=== PATIENT | female | born 1970 | race Caucasian/White ===

== ENCOUNTER 2016-09-13 22:44 | Emergency (ER) | payer BC ==
[2016-09-13] MEDS ORDERED: Prometh/Codeine Liquid 10/6.25 MG/5 ML ORAL.SYRIN PO ONE (23:03)
[2016-09-13] MEDS ORDERED: Sodium Chloride 0.9% 1,000 ML PRIMARY IV ONE (23:03)
--- NOTE | 2016-09-13 23:10 | PDOC ---
Upper Respiratory HPI - General Chief Complaint: Cough / URI Stated Complaint: Cough Date Seen by Provider: 09/13/16 Time Seen by Provider: 23:05 Source: POSITIVE: Patient, Spouse Exam Limitations: POSITIVE: No limitations Nurse's Notes Reviewed & Considered: Yes - History of Present Illness Initial Comments: Patient comes in today chief complaint of cough. Patient with an increasing cough over the last 2 or 3 days, today she had increasing hoarseness and mild sore throat. She is presently undergoing chemotherapy for recurrent astrocytoma. Her last chemotherapy was 2 weeks ago. She denies any fevers chills or sweats, nausea vomiting or diarrhea, chest pain, she does have cough that is nonproductive, shows a stuffy head, and myalgias. No rashes. Timing: REPORTS: Gradual Duration: >24 hours Severity: Moderate Context: REPORTS: Recent Chemotherapy Modifying Factors: improves with: Rest, Exertion, Coughing, OTC Cough Suppressant Associated Symptoms: REPORTS: Runny Nose, Sore Throat, Hoarseness, Cough Similar Symptoms Previously: No Recently seen/treated/hospitalized: No Any Prior Injuries Related to Current Complaint?: No - Patient Home Medications Home Medications: Home Medications Dexamethasone 1 mg PO BID 05/04/15 Ondansetron [Zofran Odt] 8 mg PO Q6H PRN PRN 05/04/15 Cholecalciferol (Vitamin D3) [Vitamin D] 1 tab PO DAILY 09/04/15 Vitamin B Complex [B100 Balanced] 1 tab PO DAILY 09/04/15 Ascorbic Acid [Vitamin C] 500 mg PO DAILY 04/30/16 Escitalopram Oxalate [Lexapro] 20 mg PO DAILY 04/30/16 Levetiracetam [Keppra] 1,500 mg PO BID 04/30/16 Meclizine HCl 25 mg PO Q4H PRN #20 tablet 04/30/16 Lorazepam [Ativan] 1 mg PO PRN PRN 09/13/16 Melatonin 20 mg PO .QHS 09/13/16 Prochlorperazine Maleate [Compazine] 1 tab PO .Q4HRS 09/13/16 Sulfameth/Trimeth 800/160 Tab [Bactrim DS 800/160 Tab] 1 tab PO BID 09/13/16 Tramadol HCl 1 - 2 tab PO .Q6HRS PRN 09/13/16 - Patient Allergies Allergies/Adverse Reactions: Allergies Allergy/AdvReac Type Severity Reaction Status Date / Time No Known Allergies Allergy Verified 09/13/16 22:51 Past Medical History - heen HEENT History: Denies History Cardiovascular History: DVTs Additional Cardiovasular History: IVC Filter placed. Respiratory History: Denies History Gastrointestinal History: Denies History Genitourinary History: Denies History Endocrine History: Denies History Musculoskeletal History: Denies History Prosthesis or Implant: No Neurological History: Seizures, Migraines, Other (please comment) Additional Neurological History: SEIZURE FREQUENCY HAS BEEN INCREASING. Pt. states there is a minimum of one seizure per day. Blood Disorders: Clotting Disorders, Other (please comment) Additional Blood Disorders History: Hx of DVT--IVC Filter placed. Psychiatric History: Denies History History of Sexually Transmitted Diseases: No Cancer History: Brain Cancer Treatment / Date(s) of Treatment: CURRENTLY GETTING CHEMO History of MDRO: No Alcohol Use: None Substance Use Type: None Previous Surgical History: Yes Type / Date of Surgery: BRAIN TUMOR REMOVAL 2009 Anesthesia Reactions: No Significant Family History: No pertinent family hx ROS - Limitations ROS Limitations: No Limitations Constitution: REPORTS: Denies Symptoms Cardiovascular: REPORTS: Denies Cardiac Symptoms Respiratory: REPORTS: Cough Non Productive Neurological: REPORTS: Denies Neuro Symptoms Gastrointestinal: REPORTS: Denies GI Symptoms Endocrine: REPORTS: Denies Symptoms Musculoskeletal: REPORTS: Muscle Aches Genitourinary: REPORTS: Denies Symptoms Eyes: REPORTS: Denies Symptoms ENT: REPORTS: Denies Symptoms Skin: REPORTS: Denies Skin Symptoms Lympathic: REPORTS: Denies Lympathic Symptoms Immunologic: POSITIVE: Denies Symptoms Psychiatric: POSITIVE: Denies Psych Symptoms Upper Respiratory/Fever Exam - General Appearance General Appearance: REPORTS: Alert, Cooperative, No Acute Distress, No Evidence of Trauma - HEENT HEENT: POSITIVE: Head Inspection Nml, Eyes Inspection Nml, Ears Inspection Nml, Nose Inspection Nml, Oral/Dental Inspect. Nml, Pharynx Inspect. Nml, PERRL, EOMI - Neck Neck: REPORTS: Normal Inspection, Supple - Respiratory Respiratory: REPORTS: No Respiratory Distress, Breath Sounds Normal, No Pleuritic Chest Pain, Speaks Full Sentences, No Pain on Inspiration - Abdomen Abdomen: Soft: (All Quadrants), Normal Bowel Sounds: (All Quadrants), Denies Tenderness: (All Quadrants) - Cardiovascular Cardiovascular: REPORTS: Regular Rate and Rhythm, Heart Sounds Normal - Skin Skin: REPORTS: Intact, Normal For Race, Warm, Dry, No Rash - Extremities Extremity: Non-Tender: (All Extremities), Normal ROM: (All Extremities), Normal Inspection: (All Extremities) - Neurological / Psychological Neurological: POSITIVE: Affect Apporpriate, Oriented X3, Motor Normal, Sensation Normal Upper Resp/Fever Progress - Results Reviewed by me Xrays/CTs/US Reviewed by me: Yes Discussed with Radiologist: No Lab Results Reviewed: Yes Lab Results:: Laboratory Results 09/13/16 Range/Units 23:24 WBC 6.42 (4.8-10.8) 10^3/uL RBC 5.14 (4.20-5.40) 10^6/uL Hgb 15.0 (12.0-16.0) g/dL Hct 45.7 (37.0-47.0) % MCV 88.9 (81-99) FL MCH 29.2 (27-31) PG MCHC 32.8 L (33-37) g/dL RDW Std Deviation 48.0 (39-50) fL RDW Coeff of Suzy 14.9 H (11.5-14.5) % Plt Count 252 (140-350) 10*3/uL MPV 10.7 (7.4-12.2) FL Immature Gran % (Auto) 0.2 (0-5) % Neut % (Auto) 60.2 (50-80) % Lymph % (Auto) 26.2 (10-50) % Beadle % (Auto) 6.2 (5-15) % Eos % (Auto) 6.9 (0-8) % Baso % (Auto) 0.3 (0-1) % Immature Gran # (Auto) 0.01 10*3/UL Neut # (Auto) 3.87 10*3/UL Lymph # (Auto) 1.68 10*3/uL Beadle # (Auto) 0.40 (0.3-0.8) 10*3/UL Eos # (Auto) 0.44 10*3/UL Baso # (Auto) 0.02 10*3/UL WBC Morphology Comment Normal morphology (NORM) Plt Morphology Comment Normal morphology (NORM) RBC Morph Comment Normal morphology (NORM) Sodium 141 (135-145) meq/L Potassium 3.9 (3.8-5.2) meq/L Chloride 103 (98-112) meq/L Carbon Dioxide 28 (23-33) meq/L Anion Gap 10 (5-20) BUN 11 (7-22) mg/dL Creatinine 0.7 (0.50-1.20) mg/dL Estimated GFR > 60 (>60 ml/min/1.73m(2)) BUN/Creatinine Ratio 15.71 (6-20) Glucose 97 (78-110) mg/dL Calculated Osmolality 290.0 (267-292) mOsm/kg Calcium 9.9 (8.7-10.7) mg/dL Total Bilirubin 0.7 (0.3-1.2) mg/dL AST 29 (8-39) IU/L ALT 20 (9-52) IU/L Alkaline Phosphatase 71 (38-126) IU/L Total Protein 7.7 (6.1-8.0) g/dL Albumin 4.3 (3.5-4.8) g/dL Globulin 3.4 (2.50-4.10) g/dL Albumin/Globulin Ratio 1.20 L (1.3-2.0) mg/g - Patient's Progress Pain Medication Addressed: POSITIVE: Not Applicable School/Work Release Addressed: POSITIVE: Yes Re-Examine Time: 00:15 Status: POSITIVE: Improved MDM / ED Course: Patient was examined, blood drawn and sent to the lab for studies, chest x-ray was obtained. Patient received oral Phenergan with codeine and her cough improved. Findings: CBC is within normal limits, comprehensive metabolic panel is within normal limits, chest x-ray as interpreted by me shows no acute cardiopulmonary decompensation. Assessment: Viral upper respiratory infection with laryngitis. Plan: Discharge home, Tylenol as needed, Phenergan with codeine is prescribed. Patient Care Time - Estimated PCT Patient Care Time (In Minutes): 30 Vital Signs - Recent Vital Signs Vital Signs: Vital Signs (Last 8 hours) Temp Pulse Resp BP Pulse Ox 09/13/16 22:45 96.8 F 80 18 122/87 95 - VS Reviewed Vital Signs Reviewed: Yes Discharge Clinical Impression: Upper respiratory infection Discharge Disposition: Discharged to Home Condition: Stable Patient Instructions Given at Discharge: Upper Respiratory Infection (ED), Laryngitis (ED)
[2016-09-13 23:30] LABS: BASOPHILS # (AUTO) 0.02 10*3/UL; BASOPHILS % (AUTO) 0.3 % (0-1); EOSINOPHILS # (AUTO) 0.44 10*3/UL; EOSINOPHILS % (AUTO) 6.9 % (0-8); HEMATOCRIT 45.7 % (37.0-47.0); LYMPHOCYTES # (AUTO) 1.68 10*3/uL; MEAN CORPUSCULAR HEMOGLOBIN 29.2 PG (27-31); MEAN CORPUSCULAR HGB CONC 32.8 g/dL (33-37); MEAN CORPUSCULAR VOLUME 88.9 FL (81-99); MEAN PLATELET VOLUME 10.7 FL (7.4-12.2); MONOCYTES % (AUTO) 6.2 % (5-15); NEUTROPHILS # (AUTO) 3.87 10*3/UL; NEUTROPHILS % (AUTO) 60.2 % (50-80); RED BLOOD COUNT 5.14 10^6/uL (4.20-5.40)
[2016-09-13 23:32] LABS: PLATELET MORPHOLOGY COMMENT NORMAL MORPHOLOGY (NORM); RBC MORPHOLOGY COMMENT NORMAL MORPHOLOGY (NORM); WBC MORPHOLOGY COMMENT NORMAL MORPHOLOGY (NORM)
[2016-09-13 23:39] LABS: BLOOD UREA NITROGEN 11 mg/dL (7-22); BUN/CREATININE RATIO 15.71 (6-20); CALCIUM 9.9 mg/dL (8.7-10.7); EST GLOMERULAR FILTRATION > 60 (>60 ml/min/1.73m(2)); SERUM ALBUMIN 4.3 g/dL (3.5-4.8)
[2016-09-13 23:45] VITALS: RESP 18; TEMP 96.8
[2016-09-14] MEDS ORDERED: HEPARIN 500 UNIT/5 ML SYRINGE FOR CENTRAL LINE IVP ONE ×2 (00:13→00:18)
[2016-09-14] MEDS ORDERED: Prometh/Codeine Liquid 10/6.25 MG/5 ML ORAL.SYRIN PO SCH (00:30)
--- NOTE | 2016-09-16 09:16 | DI ---
XR CXR 2VW PA/LAT,09/13/2016 11:03 PM: Clinical History: Cough Previous Exam: May 04, 2015 Findings: PA and lateral views of the chest are obtained, and demonstrate clear lungs. The cardiomediastinum an d bony thorax are unremarkable. There is a chest port noted within the left anterior chest wall with the tip in good position. There is no evidence of infiltrate nor effusion. There is an IVC filter noted. Impression: No acute disease.
== END 2016-09-14 00:39 | disposition home or self-care (01) ==
LOC: ER 22:44
DX: J04.0 Acute laryngitis (principal); J02.9 Acute pharyngitis, unspecified
CPT/HCPCS: 36415; 71020; 80053; 85025; 87040; 87802; 99283; J7030

== ENCOUNTER 2019-03-23 13:22 | Inpatient (IN) ==
[2019-03-23] MEDS ORDERED: KETOROLAC 15 MG/1 ML VIAL IVP ONE (13:49)
[2019-03-23] MEDS ORDERED: ONDANSETRON 4 MG/2 ML VIAL IVP ONE (13:49)
[2019-03-23] MEDS ORDERED: Sodium Chloride 0.9% 1,000 ML PRIMARY IV ONE (13:50)
[2019-03-23 14:32] LABS: BASOPHILS # (AUTO) 0.01 10*3/UL; BASOPHILS % (AUTO) 0.2 % (0-1); EOSINOPHILS % (AUTO) 1.6 % (0-8); Hematocrit [HCT] 51.4 % (37.0-47.0); Hemoglobin [HGB] 16.3 g/dL (12.0-16.0); LYMPHOCYTES # (AUTO) 1.02 10*3/uL; MEAN CORPUSCULAR HGB CONC 31.7 g/dL (33-37); MEAN CORPUSCULAR VOLUME 92.6 FL (81-99); MEAN PLATELET VOLUME 10.3 FL (7.4-12.2); MONOCYTES # (AUTO) 0.33 10*3/UL (0.3-0.8); MONOCYTES % (AUTO) 5.2 % (5-15); NEUTROPHILS # (AUTO) 4.84 10*3/UL; NEUTROPHILS % (AUTO) 76.8 % (50-80); RED BLOOD COUNT 5.55 10^6/uL (4.20-5.40)
[2019-03-23 14:40] LABS: PLATELET MORPHOLOGY COMMENT NORMAL MORPHOLOGY (NORM); RBC MORPHOLOGY COMMENT NORMAL MORPHOLOGY (NORM); WBC MORPHOLOGY COMMENT NORMAL MORPHOLOGY (NORM)
[2019-03-23 14:42] LABS: VENOUS PH 7.37 (7.32-7.42)
[2019-03-23 14:43] LABS: BLOOD UREA NITROGEN 7 mg/dL (7-22); BUN/CREATININE RATIO 11.66 (6-20)
[2019-03-23 15:11] LABS: Erythrocyte Sediment Rate 16 MM/HR (0-20)
[2019-03-23] MEDS ORDERED: ACETAMINOPHEN 325 MG TABLET PO PRN (18:55)
[2019-03-23] MEDS ORDERED: LIDOCAINE W/ SODIUM BICARB 0.5 ML SYR SUBD PRN (18:55)
[2019-03-23] MEDS ORDERED: CALCIUM CARBONATE 500 MG (TUMS) CHEWABLE TABLET PO PRN (18:55)
[2019-03-23] MEDS ORDERED: ONDANSETRON 4 MG/2 ML VIAL IVP PRN (18:55)
[2019-03-23] MEDS: Lactated Ringers 1,000 ML PRIMARY IV SCH (20:23)
[2019-03-23] MEDS: BENZOCAINE ORAL 57 GM SPRAY PO PRN (21:04)
[2019-03-24] MEDS: Lactated Ringers 1,000 ML PRIMARY IV SCH ×3 (04:08→21:25)
[2019-03-24] MEDS: BENZOCAINE ORAL 57 GM SPRAY PO PRN (04:09)
[2019-03-24 05:14] LABS: BASOPHILS # (AUTO) 0.01 10*3/UL; BASOPHILS % (AUTO) 0.2 % (0-1); EOSINOPHILS # (AUTO) 0.13 10*3/UL; EOSINOPHILS % (AUTO) 2.6 % (0-8); Hematocrit [HCT] 45.3 % (37.0-47.0); Hemoglobin [HGB] 14.5 g/dL (12.0-16.0); LYMPHOCYTES # (AUTO) 1.41 10*3/uL; MEAN CORPUSCULAR VOLUME 92.6 FL (81-99); MEAN PLATELET VOLUME 10.2 FL (7.4-12.2); MONOCYTES # (AUTO) 0.42 10*3/UL (0.3-0.8); MONOCYTES % (AUTO) 8.3 % (5-15); NEUTROPHILS # (AUTO) 3.12 10*3/UL; NEUTROPHILS % (AUTO) 61.2 % (50-80); RED BLOOD COUNT 4.89 10^6/uL (4.20-5.40)
[2019-03-24 05:17] LABS: PLATELET MORPHOLOGY COMMENT NORMAL MORPHOLOGY (NORM); RBC MORPHOLOGY COMMENT NORMAL MORPHOLOGY (NORM); WBC MORPHOLOGY COMMENT NORMAL MORPHOLOGY (NORM)
[2019-03-24 05:28] LABS: BLOOD UREA NITROGEN 4 mg/dL (7-22); BUN/CREATININE RATIO 5.71 (6-20); SERUM ALBUMIN 3.4 g/dL (3.5-4.8)
[2019-03-24] MEDS ORDERED: LevETIRAcetam Tab 500 MG TABLET PO SCH (09:00)
[2019-03-24] MEDS ORDERED: HEPARIN 500 UNIT/5 ML SYRINGE FOR CENTRAL LINE IVP ONE (11:14)
[2019-03-25] MEDS: Lactated Ringers 1,000 ML PRIMARY IV SCH ×2 (04:13→11:43)
[2019-03-25 04:32] VITALS: RESP 16
[2019-03-25 07:51] VITALS: BP 128/79; TEMP 98
[2019-03-25 09:45] VITALS: O2SAT 99
[2019-03-26] MEDS ORDERED: LEVOTHYROXINE 50 MCG TABLET PO SCH (05:30)
== END 2019-03-25 12:21 | disposition home or self-care (01) | DRG 389 ==
LOC: ER 13:22 → MED/SURG 18:42
PROVIDERS: ADMIT Family Medicine; ATTEND Family Medicine